=== PATIENT | female | born 1950 | race Caucasian/White ===

== ENCOUNTER 2024-12-14 12:53 | Outpatient (AMB) | payer MEDICARE, OTHER, SELFPAY ==
--- NOTE | 2024-12-14 13:00 | PD.ORTHCLVIS ---
Vital signs 12/14/24 13:04 Height 1.6 m Height Method Stated Weight 71.384 kg Weight Measurement Method Standing Scale BMI 27.8 BP 121/78 Blood Pressure Source Automatic Cuff Blood Pressure Location Left Upper Arm Position Sitting Respiration 18 Pulse 92 Pulse Source Monitor Temp 98.1 F Temp Source Temporal Artery Scan Pulse Oximetry (%) 95 Oxygen Delivery Method Room Air Med/Allergies Allergies & Medications Allergies No Known Allergies Allergy (Verified 12/14/24 13:04) Medication Reconciliation meloxicam 7.5 mg tablet 7.5 mg PO BID #45 tabs 05/04/23 [Rx Confirmed 12/14/24] Exam Exam Patient is in no acute distress and is cooperative with the examination today. Breathing is nonlabored. Patient has a normal mood and affect. The patient has a gait that is [nonantalgic] Bilateral extremities were evaluated and demonstrates sensation intact to light touch. Palpable pedal pulses are present. No significant edema is present. Bilateral hips were examined. The patient has no pain with log roll of the hips. Internal rotation to 30 degrees and external rotation to 30 degrees is painless. Negative FADIR. She is tender to palpation laterally over the greater trochanter Right knee was examined today. The right knee is in reasonable alignment. Range of motion from 0-120 degrees. Knee is stable to varus and valgus as well as AP translation with <5mm. Patient has a negative McMurrays. There is no pain with patellofemoral compression and no crepitus noted. The knee is nontender to palpation. Left knee was examined today. The left knee is in [neutral] alignment. Range of motion from [0-120] degrees. Knee is stable to varus and valgus as well as AP translation with <5mm. Patient has a [negative] McMurrays. There is [no] pain with patellofemoral compression and [no] crepitus noted. The knee is tender to palpation [diffusely]. X-rays from 04/22/2023 reviewed by me today. This demonstrates significant degenerative joint disease of the left knee. There are osteophytes medially and complete obliteration of the joint space. For the right hip, there is moderate osteoarthritis joint space narrowing and osteophytes Assessment and Plan Problem List (1) Spinal stenosis: Status: Acute Plan: Patient is a 72-year-old female with left knee osteoarthritis as well as right hip osteoarthritis and spinal stenosis. She would like a repeat right hip cortisone injection. I think this is reasonable as she wants to avoid surgery at all cost. She also did very well last time We will see her back to see how her injection is doing. (2) Arthritis of right hip: Status: Acute (3) Arthritis of knee, left: Status: Acute Advanced Care Planning Discussion Advance care planning discussed with:: patient Office Procedures GNS Level of Care Nursing/Assessment Patient Status: Established Patient Nursing Assessment/Reassesment: Medication Reconciliation, Update PMH in EMR and Vital Signs Coordination of Care: Complex Care and Chronic Disease 1-5, Education Complex Pt/Fam, Consent,records obtained, informed consent, Results/Orders obtained and Staff clarify orders Established Patient Charge Established Patient Point Assignment: 95 Established Patient Point Charge: EP Level 3 (80-115) MA Intake Visit Data Collection New Patient or Established: Established Patient (seen at [facility] within 3 years) Reason for Visit:: REQ RIGHT HIP INJECTION Seen by Clinical Staff ONLY (RN/MA): No PCP or OBGYN visit in last 3 months: Yes Hx Now: No Do You Feel Safe at Home: Yes Authorities Contacted: N/A Questionairres Past Medical History Past Medical History Have you ever been diagnosed with any of the following: Respiratory Problems Smoking: Yes (50+ YEARS) Smoking Exposure: Yes Subjective Visit Visit for: follow up visit, hip and injections Immunization / Flu Flu Vaccine in the Last 12 Months: No Flu Vaccine Exclusion Criteria: No Exclusion Criteria History of Present Illness Chief complaint: right dennis Patient is a 72-year-old female with right hip and left knee pain. The left knee pain is diffuse and the right hip pain is on the side. She has not had significant conservative therapy. She wants to avoid surgery as much as possible. She is not really taking anti-inflammatories. She reports that she now has bilateral radicular pain going down her legs. She had great relief with her last right hip intra-articular hip injection and she would like another one. We will order one for her As the last injection has lasted for over 6 months Pain Pain level (0-10): 6 Pain duration: ALL DAY Pain location: outside (lateral) Pain quality: aching Pain timing: increases with activity and stairs Ambulatory data Ambulatory device: none Treatments Improvement with previous injections: No Improvement with PT: No Improvement with NSAIDS: no Review of Systems Review of Systems: All systems negative unless otherwise noted in HPI.
[2024-12-14 13:04] VITALS: BP 121/78; PULSE 92; RESP 18; TEMP 36.7; O2SAT 95; BMI 27.8
== END 2024-12-14 13:22 | disposition home or self-care (01) ==
LOC: HODSRG 12:53
PROVIDERS: PCP Registered Nurse; Referring Provider Registered Nurse; Supervising Provider Orthopaedic Surgery Adult Reconstructive Orthopaedic Surgery; Visit Provider Orthopaedic Surgery Adult Reconstructive Orthopaedic Surgery
DX: M17.12 Unilateral primary osteoarthritis, left knee (principal); M16.11 Unilateral primary osteoarthritis, right hip; M48.00 Spinal stenosis, site unspecified; M25.551 Pain in right hip; M25.561 Pain in right knee
CPT/HCPCS: 99213; G0463

== ENCOUNTER → 2024-12-25 | Outpatient (CLI) | payer MEDICARE, OTHER, SELFPAY ==
--- NOTE | 2024-12-25 13:00 | XR_ITS ---
Examination: Steroid injection right hip joint with imaging guidance Fluoroscopy AP right hip single view INDICATIONS: Advanced right hip osteoarthritis right hip pain years. Exam date and time: December 25, 2024 1248 hours Informed consent provided. Technique: A timeout was completed verifying correct patient, procedure, site, positioning. The patient was placed in supine position appropriate for the steroid injection The patient's site was prepped and draped in sterile fashion 5 cc 1% lidocaine administered locally for anesthesia. Sterile drape applied, maximum barrier sterile technique. Utilizing fluoroscopic guidance, 23-gauge needle placed in the right hip joint 1 cc Kenalog 40 in 5 cc 0.25% Marcaine introduced into the right hip joint The patient was in satisfactory and stable condition on completion of the procedure Attending radiologist was present for the entire procedure Estimated blood loss 0 cc. Impression: Successful steroid injection right hip joint with imaging guidance Fluoroscopy 0.1 minute radiation dose 0.98 milligray 1 spot fluoroscopic film AP .
== END | disposition home or self-care (01) ==
LOC: SIRX 12:45
PROVIDERS: PCP Family Medicine; Referring Provider Orthopaedic Surgery Adult Reconstructive Orthopaedic Surgery; Visit Provider Orthopaedic Surgery Adult Reconstructive Orthopaedic Surgery
DX: M16.11 Unilateral primary osteoarthritis, right hip (principal)
CPT/HCPCS: 20610; 77002

== ENCOUNTER 2025-03-06 13:26 | Outpatient (AMB) | payer MEDICARE, OTHER, SELFPAY ==
--- NOTE | 2025-03-06 13:35 | ORTHONT_ITS ---
Vital signs 03/06/25 13:37 Height 1.6 m Height Method Stated Weight 70.987 kg Weight Measurement Method Standing Scale BMI 27.7 BP 134/80 H Blood Pressure Source Automatic Cuff Blood Pressure Location Left Upper Arm Position Sitting Respiration 18 Pulse 86 Pulse Source Monitor Temp 97.7 F Temp Source Temporal Artery Scan Pulse Oximetry (%) 94 L Oxygen Delivery Method Room Air Med/Allergies Allergies & Medications Allergies No Known Allergies Allergy (Verified 03/06/25 13:38) Medication Reconciliation meloxicam 7.5 mg tablet 7.5 mg PO BID #45 tabs 05/04/23 [Rx Confirmed 03/06/25] Exam Exam Patient is in no acute distress and is cooperative with the examination today. Breathing is nonlabored. Patient has a normal mood and affect. The patient has a gait that is [nonantalgic] Bilateral extremities were evaluated and demonstrates sensation intact to light touch. Palpable pedal pulses are present. No significant edema is present. Bilateral hips were examined. The patient has no pain with log roll of the hips. Internal rotation to 30 degrees and external rotation to 30 degrees is painless. Negative FADIR. She is tender to palpation laterally over the greater trochanter Right knee was examined today. The right knee is in reasonable alignment. Range of motion from 0-120 degrees. Knee is stable to varus and valgus as well as AP translation with <5mm. Patient has a negative McMurrays. There is no pain with patellofemoral compression and no crepitus noted. The knee is nontender to palpation. Left knee was examined today. The left knee is in [neutral] alignment. Range of motion from [0-120] degrees. Knee is stable to varus and valgus as well as AP translation with <5mm. Patient has a [negative] McMurrays. There is [no] pain with patellofemoral compression and [no] crepitus noted. The knee is tender to palpation [diffusely]. X-rays from 04/22/2023 reviewed by me today. This demonstrates significant d egenerative joint disease of the left knee. There are osteophytes medially and complete obliteration of the joint space. For the right hip, there is moderate osteoarthritis joint space narrowing and osteophytes X-rays demonstrate significant joint space narrowing of the femoral acetabular joint space. Left knee x-rays demonstrates complete obliteration of the medial joint space as well Assessment and Plan Problem List (1) Spinal stenosis: Status: Acute Plan: Patient is a 72-year-old female with left knee osteoarthritis as well as right hip osteoarthritis and spinal stenosis. She had a repeat hip cortisone injection with minimal relief. The majority of her pain is in the groin. We thus discussed total hip replacement as a reasonable option. I would do this through an anterior approach given her body habitus The nature and purpose of the total hip replacement, alternative method(s) of treatment, the material risks involved, and the possibility of complications were fully explained to the patient. The patient does NOT have any of the following contraindications to MARY: - Active infection of the hip joint, OR - Active systemic bacteremia, OR - Active skin infection or open wound at surgical site, OR - Neuropathic arthritis, OR - Severe, rapidly progressive neurological disease, OR - Severe medical condition that makes risks of the surgery outweigh the potential benefit The patient was told the most common risks and complications associated with a total hip replacement include, but are not limited to: blood clots in the leg, fatal pulmonary embolism, dislocation of the prosthesis, intraoperative and postoperative fractures of the femur or acetabulum, infection, failure of the prosthesis or grafting materials, complications from anesthesia, reactions to blood transfusions, postoperative leg length inequality, instability of the hip replacement, nerve damage or injury, vascular injury, delayed wound healing, infection, other injury or even . In addition, there are risks associated with anesthesia given during this operation. Also, the patient was told that after undergoing a total hip replacement there may still be persistent pain or disability. The patient was informed that the success of this operation in part depends upon the mechanical devices which are going to be implanted and that these devices can fail or malfunction, and may need to be repaired or replaced and there are no guarantees as to the longevity of this device or its parts and that it or its parts could fail prematurely. The patient was also notified that during the course of surgery, there may be a need to use bone graft from donors, and that any bone graft used will be carefully screened for communicable diseases, including AIDS, hepatitis, Geoffrey-Creutzfeldt, or other diseases, but despite the screening procedures, there is a small chance that they could contract one of these diseases. Finally, the patient was asked to follow completely and fully with all advice and recommended treatments, and that recovery and ultimate outcome are affected by their compliance with recommended treatment. We discussed the risks, benefits and treatment alternatives, and the patient is interested in proceeding with s nena. We will try to set this up as expeditiously as possible. (2) Arthritis of right hip: Status: Acute (3) Arthritis of knee, left: Status: Acute Advanced Care Planning Discussion Advance care planning discussed with:: patient Office Procedures GNS Level of Care Nursing/Assessment Patient Status: Established Patient Nursing Assessment/Reassesment: Medication Reconciliation, Update PMH in EMR and Vital Signs Coordination of Care: Complex Care and Chronic Disease 1-5, Education Complex Pt/Fam, Consent,records obtained, informed consent, Results/Orders obtained and Staff clarify orders Established Patient Charge Established Patient Point Assignment: 95 Established Patient Point Charge: EP Level 3 (80-115) MA Intake Visit Data Collection New Patient or Established: Established Patient (seen at [facility] within 3 years) Reason for Visit:: R HIP PAIN/LEFT KNEE INJ FU Seen by Clinical Staff ONLY (RN/MA): No PCP or OBGYN visit in last 3 months: Yes Hx Now: No Do You Feel Safe at Home: Yes Authorities Contacted: N/A Questionairres Past Medical History Past Medical History Have you ever been diagnosed with any of the following: Respiratory Problems Smoking: Yes (50+ YEARS) Smoking Exposure: Yes Subjective Visit Visit for: follow up visit, hip (RIGHT), knee (LEFT) and injections (KNEE) Immunization / Flu Flu Vaccine in the Last 12 Months: No Flu Vaccine Exclusion Criteria: No Exclusion Criteria History of Present Illness Chief complaint: right dennis Patient is a 72-year-old female with right hip and left knee pain. The left knee pain is diffuse and the right hip pain is on the side. She has not had significant conservative therapy. She wants to avoid surgery as much as possible. she has had multiple joint injections in the right hip. They are no longer working as long as they used to. The last injection only lasted for a few weeks. She has failed conservative treatments at this time including multiple injections in her hip as well as anti-inflammatories and home exercises Pain Pain level (0-10): 6 Pain duration: ALL DAY Pain location: outside (lateral) Pain quality: aching Pain timing: increases with activity and stairs Ambulatory data Ambulatory device: none Treatments Number of previous injections: 1 Improvement with previous injections: Yes Improvement with PT: No Improvement with NSAIDS: no Review of Systems Review of Systems: All systems negative unless otherwise noted in HPI.
[2025-03-06 13:37] VITALS: BP 134/80; PULSE 86; RESP 18; TEMP 36.5; O2SAT 94; BMI 27.7
== END 2025-03-06 13:42 | disposition home or self-care (01) ==
LOC: HODSRG 13:26
PROVIDERS: PCP Family Medicine; Referring Provider Family Medicine; Supervising Provider Orthopaedic Surgery Adult Reconstructive Orthopaedic Surgery; Visit Provider Orthopaedic Surgery Adult Reconstructive Orthopaedic Surgery
DX: M25.551 Pain in right hip (principal); M48.00 Spinal stenosis, site unspecified; M16.11 Unilateral primary osteoarthritis, right hip; M17.12 Unilateral primary osteoarthritis, left knee; M25.562 Pain in left knee
CPT/HCPCS: 99213; G0463

== ENCOUNTER → 2025-03-14 | Outpatient (CLI) | payer MEDICARE, OTHER, SELFPAY ==
--- NOTE | 2025-03-14 08:00 | XR_ITS ---
Examination: CT bilateral lower extremities, without contrast. 2-D sagittal reconstructions. 2-D coronal reconstructions. 3-D reconstructions. Date and time of exam:March 14, 2025 0801 hours INDICATIONS: Diagnosis unilateral right hip osteoarthritis, right hip pain 2 years CTDI: vol (mGy):10.2 DLP: (mGycm):656 Technique: Multiple 1.25 mm axial sections of the bilateral hips have been obtained. 2-D sagittal and coronal reconstructions have been obtained. 3-D reconstructions have been obtained. Low dose protocols were performed. One or more of the following dose reduction techniques were used; automated exposure control, adjustment of the mA and/or KV according to patient size, use of iterative reconstruction technique. Findings: Severe osteopenia. Severe narrowing right hip joint No right hip fracture or dislocation Moderate narrowing left hip joint Moderate to advanced narrowing medial joint space right knee Severe narrowing medial joint space left knee Moderate osteoarthritis patellofemoral joints IMPRESSION: Severe narrowing right hip joint Moderate to advanced narrowing medial joint space right knee Severe narrowing medial joint space left knee
== END | disposition home or self-care (01) ==
PROVIDERS: Referring Provider Orthopaedic Surgery Adult Reconstructive Orthopaedic Surgery; Visit Provider Orthopaedic Surgery Adult Reconstructive Orthopaedic Surgery
DX: M25.851 Other specified joint disorders, right hip (principal); M25.862 Other specified joint disorders, left knee; M25.861 Other specified joint disorders, right knee
CPT/HCPCS: 72192; 73700

== ENCOUNTER 2025-04-05 14:06 | Outpatient (AMB) | payer MEDICARE, OTHER, SELFPAY ==
--- NOTE | 2025-04-05 14:13 | ORTHONT_ITS ---
Vital signs 04/05/25 14:15 Height 1.6 m Height Method Stated Weight 71.016 kg Weight Measurement Method Standing Scale BMI 27.7 BP 123/78 Blood Pressure Source Automatic Cuff Blood Pressure Location Left Upper Arm Position Sitting Respiration 18 Pulse 87 Pulse Source Monitor Temp 97.5 F Temp Source Temporal Artery Scan Pulse Oximetry (%) 97 Oxygen Delivery Method Room Air Med/Allergies Allergies & Medications Allergies No Known Allergies Allergy (Verified 04/05/25 14:15) Medication Reconciliation meloxicam 7.5 mg tablet 7.5 mg PO BID #45 tabs 05/04/23 [Rx Confirmed 04/05/25] Exam Exam Patient is in no acute distress and is cooperative with the examination today. Breathing is nonlabored. Patient has a normal mood and affect. The patient has a gait that is [nonantalgic] Bilateral extremities were evaluated and demonstrates sensation intact to light touch. Palpable pedal pulses are present. No significant edema is present. Bilateral hips were examined. The patient has no pain with log roll of the hips. Internal rotation to 30 degrees and external rotation to 30 degrees is painless. Negative FADIR. She is tender to palpation laterally over the greater trochanter Right knee was examined today. The right knee is in reasonable alignment. Range of motion from 0-120 degrees. Knee is stable to varus and valgus as well as AP translation with <5mm. Patient has a negative McMurrays. There is no pain with patellofemoral compression and no crepitus noted. The knee is nontender to palpation. Left knee was examined today. The left knee is in [neutral] alignment. Range of motion from [0-120] degrees. Knee is stable to varus and valgus as well as AP translation with <5mm. Patient has a [negative] McMurrays. There is [no] pain with patellofemoral compression and [no] crepitus noted. The knee is tender to palpation [diffusely]. X-rays from 04/22/2023 reviewed by me today. This demonstrates significant degenerative joint disease of the left knee. There are osteophytes medially and complete obliteration of the joint space. For the right hip, there is moderate osteoarthritis joint space narrowing and osteophytes X-rays demonstrate significant joint space narrowing of the femoral acetabular joint space. Left knee x-rays demonstrates complete obliteration of the medial joint space as well Assessment and Plan Problem List (1) Spinal stenosis: Status: Acute Plan: Patient is a 72-year-old female with left knee osteoarthritis as well as right hip osteoarthritis and spinal stenosis. She had a repeat hip cortisone injection with minimal relief. The majority of her pain is in the groin. We thus discussed total hip replacement as a reasonable option. I would do this through an anterior approach given her body habitus The nature and purpose of the total hip replacement, alternative method(s) of treatment, the material risks involved, and the possibility of complications were fully explained to the patient. The patient does NOT have any of the following contraindications to MARY: - Active infection of the hip joint, OR - Active systemic bacteremia, OR - Active skin infection or open wound at surgical site, OR - Neuropathic arthritis, OR - Severe, rapidly progressive neurological disease, OR - Severe medical condition that makes risks of the surgery outweigh the potential benefit The patient was told the most common risks and complications associated with a total hip replacement include, but are not limited to: blood clots in the leg, fatal pulmonary embolism, dislocation of the prosthesis, intraoperative and postoperative fractures of the femur or acetabulum, infection, failure of the prosthesis or grafting materials, complications from anesthesia, reactions to blood transfusions, postoperative leg length inequality, instability of the hip replacement, nerve damage or injury, vascular injury, delayed wound healing, infection, other injury or even . In addition, there are risks associated with anesthesia given during this operation. Also, the patient was told that after undergoing a total hip replacement there may still be persistent pain or disability. The patient was informed that the success of this operation in part depends upon the mechanical devices which are going to be implanted and that these devices can fail or malfunction, and may need to be repaired or replaced and there are no guarantees as to the longevity of this device or its parts and that it or its parts could fail prematurely. The patient was also notified that during the course of surgery, there may be a need to use bone graft from donors, and that any bone graft used will be carefully screened for communicable diseases, including AIDS, hepatitis, Geoffrey-Creutzfeldt, or other diseases, but despite the screening procedures, there is a small chance that they could contract one of these diseases. Finally, the patient was asked to follow completely and fully with all advice and recommended treatments, and that recovery and ultimate outcome are affected by their compliance with recommended treatment. We discussed the risks, benefits and treatment alternatives, and the patient is interested in proceeding with surgery. We will try to set this up as expeditiously as possible. (2) Arthritis of right hip: Status: Acute (3) Arthritis of knee, left: Status: Acute Advanced Care Planning Discussion Advance care planning discussed with:: patient Office Procedures GNS Level of Care Nursing/Assessment Patient Status: Established Patient Nursing Assessment/Reassesment: Medication Reconciliation, Update PMH in EMR and Vital Signs Coordination of Care: Complex Care and Chronic Disease 1-5, Education Complex Pt/Fam, Consent,records obtained, informed consent, Results/Orders obtained and Staff clarify orders Established Patient Charge Established Patient Point Assignment: 95 Established Patient Point Charge: EP Level 3 (80-115) MA Intake Visit Data Collection New Patient or Established: Established Patient (seen at [facility] within 3 years) Reason for Visit:: R HIP PAIN/LEFT KNEE INJ FU Seen by Clinical Staff ONLY (RN/MA): No PCP or OBGYN visit in last 3 months: Yes Hx Now: No Do You Feel Safe at Home: Yes Authorities Contacted: N/A Questionairres Past Medical History Past Medical History Have you ever been diagnosed with any of the following: Respiratory Problems Smoking: Yes (50+ YEARS) Smoking Exposure: Yes Subjective Visit Visit for: follow up visit, hip (RIGHT), knee (LEFT) and injections (KNEE) Immunization / Flu Flu Vaccine in the Last 12 Months: No Flu Vaccine Exclusion Criteria: No Exclusion Criteria History of Present Illness Chief complaint: right hip pain Patient is a 72-year-old female with right hip and left knee pain. The left knee pain is diffuse and the right hip pain is on the side. She has not had significant conservative therapy. She wants to avoid surgery as much as possible. she has had multiple joint injections in the right hip. They are no longer working as long as they used to. The last injection only lasted for a few weeks. She has failed conservative treatments at this time including multiple injections in her hip as well as anti-inflammatories and home exercises Pain Pain level (0-10): 6 Pain duration: ALL DAY Pain location: outside (lateral) Pain quality: aching Pain timing: increases with activity and stairs Ambulatory data Ambulatory device: none Treatments Number of previous injections: 1 Improvement with previous injections: Yes Improvement with PT: No Improvement with NSAIDS: no Review of Systems Review of Systems: All systems negative unless otherwise noted in HPI.
[2025-04-05 14:15] VITALS: BP 123/78; PULSE 87; RESP 18; TEMP 36.4; O2SAT 97; BMI 27.7
== END 2025-04-05 14:23 | disposition home or self-care (01) ==
LOC: HODSRG 14:06
PROVIDERS: PCP Family Medicine; Referring Provider Family Medicine; Supervising Provider Orthopaedic Surgery Adult Reconstructive Orthopaedic Surgery; Visit Provider Orthopaedic Surgery Adult Reconstructive Orthopaedic Surgery
DX: M25.561 Pain in right knee (principal); M25.562 Pain in left knee; M17.12 Unilateral primary osteoarthritis, left knee; M16.11 Unilateral primary osteoarthritis, right hip; M48.00 Spinal stenosis, site unspecified
CPT/HCPCS: 99213; G0463

== ENCOUNTER 2025-05-04 11:03 | Outpatient (AMB) | payer MEDICARE, OTHER, SELFPAY ==
--- NOTE | 2025-05-04 11:18 | PD.ORTHCLVIS ---
Vital signs 05/04/25 11:23 Height 1.6 m Height Method Stated Weight 70.562 kg Weight Measurement Method Standing Scale BMI 27.6 BP 113/74 Blood Pressure Source Automatic Cuff Blood Pressure Location Left Upper Arm Position Sitting Respiration 20 Pulse 96 Pulse Source Monitor Temp 97.9 F Temp Source Temporal Artery Scan Pulse Oximetry (%) 96 Oxygen Delivery Method Room Air Med/Allergies Allergies & Medications Allergies No Known Allergies Allergy (Verified 05/04/25 11:24) Medication Reconciliation meloxicam 7.5 mg tablet 7.5 mg PO BID #45 tabs 05/04/23 [Rx Confirmed 05/04/25] Exam Exam Patient is in no acute distress and is cooperative with the examination today. Breathing is nonlabored. Patient has a normal mood and affect. The patient has a gait that is [nonantalgic] Bilateral extremities were evaluated and demonstrates sensation intact to light touch. Palpable pedal pulses are present. No significant edema is present. Bilateral hips were examined. The patient has no pain with log roll of the hips. Internal rotation to 30 degrees and external rotation to 30 degrees is painless. Negative FADIR. She is tender to palpation laterally over the greater trochanter Right knee was examined today. The right knee is in reasonable alignment. Range of motion from 0-120 degrees. Knee is stable to varus and valgus as well as AP translation with <5mm. Patient has a negative McMurrays. There is no pain with patellofemoral compression and no crepitus noted. The knee is nontender to palpation. Left knee was examined today. The left knee is in [neutral] alignment. Range of motion from [0-120] degrees. Knee is stable to varus and valgus as well as AP translation with <5mm. Patient has a [negative] McMurrays. There is [no] pain with patellofemoral compression and [no] crepitus noted. The knee is tender to palpation [diffusely]. X-rays from 04/22/2023 reviewed by me today. This demonstrates significant degenerative joint disease of the left knee. There are osteophytes medially and complete obliteration of the joint space. For the right hip, there is moderate osteoarthritis joint space narrowing and osteophytes X-rays demonstrate significant joint space narrowing of the femoral acetabular joint space. Left knee x-rays demonstrates complete obliteration of the medial joint space as well Assessment and Plan Problem List (1) Spinal stenosis: Status: Acute Plan: Patient is a 72-year-old female with left knee osteoarthritis as well as right hip osteoarthritis and spinal stenosis. She had a repeat hip cortisone injection with minimal relief. The majority of her pain is in the groin. We thus discussed total hip replacement as a reasonable option. I would do this through an anterior approach given her body habitus The nature and purpose of the total hip replacement, alternative method(s) of treatment, the material risks involved, and the possibility of complications were fully explained to the patient. The patient does NOT have any of the following contraindications to MARY: - Active infection of the hip joint, OR - Active systemic bacteremia, OR - Active skin infection or open wound at surgical site, OR - Neuropathic arthritis, OR - Severe, rapidly progressive neurological disease, OR - Severe medical condition that makes risks of the surgery outweigh the potential benefit The patient was told the most common risks and complications associated with a total hip replacement include, but are not limited to: blood clots in the leg, fatal pulmonary embolism, dislocation of the prosthesis, intraoperative and postoperative fractures of the femur or acetabulum, infection, failure of the prosthesis or grafting materials, complications from anesthesia, reactions to blood transfusions, postoperative leg length inequality, instability of the hip replacement, nerve damage or injury, vascular injury, delayed wound healing, infection, other injury or even . In addition, there are risks associated with anesthesia given during this operation. Also, the patient was told that after undergoing a total hip replacement there may still be persistent pain or disability. The patient was informed that the success of this operation in part depends upon the mechanical devices which are going to be implanted and that these devices can fail or malfunction, and may need to be repaired or replaced and there are no guarantees as to the longevity of this device or its parts and that it or its parts could fail prematurely. The patient was also notified that during the course of surgery, there may be a need to use bone graft from donors, and that any bone graft used will be carefully screened for communicable diseases, including AIDS, hepatitis, Geoffrey-Creutzfeldt, or other diseases, but despite the screening procedures, there is a small chance that they could contract one of these diseases. Finally, the patient was asked to follow completely and fully with all advice and recommended treatments, and that recovery and ultimate outcome are affected by their compliance with recommended treatment. We discussed the risks, benefits and treatment alternatives, and the patient is interested in proceeding with surgery. We will try to set this up as expeditiously as possible. (2) Arthritis of right hip: Status: Acute (3) Arthritis of knee, left: Status: Acute Advanced Care Planning Discussion Advance care planning discussed with:: patient Office Procedures GNS Level of Care Nursing/Assessment Patient Status: Established Patient Nursing Assessment/Reassesment: Medication Reconciliation, Update PMH in EMR and Vital Signs Coordination of Care: Complex Care and Chronic Disease 1-5, Education Complex Pt/Fam, Consent,records obtained, informed consent, Results/Orders obtained and Staff clarify orders Established Patient Charge Established Patient Point Assignment: 95 Established Patient Point Charge: EP Level 3 (80-115) MA Intake Visit Data Collection New Patient or Established: Established Patient (seen at [facility] within 3 years) Reason for Visit:: PRE OP R TKA Seen by Clinical Staff ONLY (RN/MA): No PCP or OBGYN visit in last 3 months: Yes Hx Now: No Do You Feel Safe at Home: Yes Authorities Contacted: N/A Questionairres Past Medical History Past Medical History Have you ever been diagnosed with any of the following: Respiratory Problems Smoking: Yes (50+ YEARS) Smoking Exposure: Yes Subjective Visit Visit for: follow up visit and hip (RIGHT) Immunization / Flu Flu Vaccine in the Last 12 Months: No Flu Vaccine Exclusion Criteria: No Exclusion Criteria History of Present Illness Chief complaint: PRE OP R MARY SX ON 05/23 Patient is a 72-year-old female with right hip and left knee pain. The left knee pain is diffuse and the right hip pain is on the side. She has not had significant conservative therapy. She wants to avoid surgery as much as possible. she has had multiple joint injections in the right hip. They are no longer working as long as they used to. The last injection only lasted for a few weeks. She has failed conservative treatments at this time including multiple injections in her hip as well as anti-inflammatories and home exercises Personal History Additional comments: WALKER WAS GIVEN TO PATIENT Pain Pain level (0-10): 6 Pain duration: ALL DAY Pain location: outside (lateral) Pain quality: aching Pain timing: increases with activity and stairs Ambulatory data Ambulatory device: walker (GIVEN TO PT) and none Treatments Number of previous injections: 1 Improvement with previous injections: Yes Improvement with PT: No Improvement with NSAIDS: no Review of Systems Review of Systems: All systems negative unless otherwise noted in HPI.
[2025-05-04 11:23] VITALS: BP 113/74; PULSE 96; RESP 20; TEMP 36.6; O2SAT 96; BMI 27.6
--- NOTE | 2025-05-04 11:23 | XR_ITS ---
Examination: Right hip AP, lateral, AP pelvis 3 views Technique: Hip AP lateral, AP pelvis, 3 views Exam date and time: May 04, 2025, 1133 hours INDICATIONS: Right hip pain months FINDINGS: Severe right hip osteoarthritis, marked joint space narrowing and subarticular sclerosis Moderate left hip osteoarthritis No hip or pelvic fracture IMPRESSION: Severe right hip osteoarthritis.
== END 2025-05-04 11:27 | disposition home or self-care (01) ==
LOC: HODSRG 11:03
PROVIDERS: Supervising Provider Orthopaedic Surgery Adult Reconstructive Orthopaedic Surgery; Visit Provider Orthopaedic Surgery Adult Reconstructive Orthopaedic Surgery
DX: M25.551 Pain in right hip (principal); M25.562 Pain in left knee; M16.11 Unilateral primary osteoarthritis, right hip; M17.12 Unilateral primary osteoarthritis, left knee; M48.00 Spinal stenosis, site unspecified
CPT/HCPCS: 73502; 99213; G0463

== ENCOUNTER 2025-05-23 05:45 | Day surgery (SDC) | payer MEDICARE, OTHER, SELFPAY ==
--- NOTE | 2025-05-22 06:00 | EKG_ITS ---
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
[2025-05-22 07:02] VITALS: BMI 26.9
[2025-05-22 08:55] LABS: Basophils # (Auto) 0.1 Thou/mm3 (0.0-0.2); Basophils % (Auto) 2 % (0-2.5); Eosinophils # (Auto) 0.3 Thou/mm3 (0.0-0.5); Eosinophils % (Auto) 6 % (0-10); Hematocrit 44.0 % (36.0-46.0); Hemoglobin 15.0 g/dL (12.0-16.0); Immature Granulocytes Auto 0.01 Thou/mm3 (0.00-0.00); Lymphocytes # (Auto) 1.9 Thou/mm3 (1.0-4.8); Lymphocytes % (Auto) 39 % (10-50); Mean Corpuscular HGB Conc 34.1 g/dl (31.0-37.0); Mean Corpuscular Hemoglobin 32.3 pg (25.0-35.0); Mean Corpuscular Volume 95 fL (80-100); Monocytes # (Auto) 0.6 Thou/mm3 (0.0-0.8); Monocytes % (Auto) 12 % (0-12); Neutrophils # (Auto) 2.0 Thou/mm3 (1.8-7.7); Neutrophils % (Auto) 42 % (37-80); Nucleated Red Blood Cell # 0.00 Thou/mm3 (0.00-0.00); Nucleated Red Blood Cell % 0 /100 WBC (0); Platelet Count 318 Thou/mm3 (140-440); RDW Standard Deviation 43.7 fL (36.4-46.3); Red Blood Count 4.64 Miln/mm3 (4.00-5.20); White Blood Count 4.8 Thou/mm3 (3.6-11.0)
[2025-05-22 09:05] LABS: Alanine Aminotransferase 13 U/L (10-49); Albumin, Serum 4.5 gm/dL (3.4-4.8); Albumin/Globulin Ratio 2.0 (1.2-2.2); Alkaline Phosphatase 71 U/L (46-116); Anion Gap 8 (7-16); Aspartate Amino Transferase 17 U/L (0-34); BUN/Creatinine Ratio 15 Ratio (12-20); Bilirubin,Total 0.4 mg/dL (0.3-1.2); Blood Urea Nitrogen 9 mg/dL (9-23); Calcium 9.3 mg/dL (8.3-10.6); Calcium (Corrected) 9.3 mg/dL (8.5-10.1); Carbon Dioxide 28.6 mMol/L (20.0-31.0); Chloride 104 mMol/L (98-107); Creatinine (Component) 0.6 mg/dL (0.6-1.3); Estimated Creatinine Clearance 78.5 mL/min (>60); Globulin 2.2 gm/dL (2.3-3.5); Glucose 105 mg/dL (74-106); Osmolality,Calculated 279 (275-295); Potassium 3.3 mMol/L (3.4-5.1); Sodium 141 mMol/L (136-145); Total Protein 6.7 gm/dL (5.7-8.2); eGFR > 60 See Note
[2025-05-22 09:53] LABS: INR 0.9 (0.9-1.3); Partial Thromboplastin Time 27.6 Seconds (22.0-36.0); Prothrombin Time 9.7 Seconds (9.0-12.2)
[2025-05-23] VITALS (15 sets, daily range): BP systolic 90–124; BP diastolic 50–82; PULSE 77–102; RESP 14–21; TEMP 36.1–36.6; O2SAT 90–98; BMI 25.9
[2025-05-23] MEDS: PREGABALIN 75 MG CAPSULE PO (06:50)
[2025-05-23] MEDS: ACETAMINOPHEN 325 MG TABLET 650 MG PO (06:50)
[2025-05-23] MEDS: MELOXICAM 7.5 MG TABLET PO (06:50)
--- NOTE | 2025-05-23 07:15 | CHAP ---
Visited briefly with patient and gave encouragement and prayer.
--- NOTE | 2025-05-23 07:30 | XR_ITS ---
EXAMINATION: Right hip AP 6 views Fluoroscopy Date and time: May 23, 2025, 10:30 a.m. INDICATIONS: Severe right hip osteoarthritis on plain films right hip May 04, 2025, total right hip arthroplasty today TECHNIQUE AND FINDINGS: 6. Spot fluoroscopic films of the right hip Fluoroscopy 24 seconds radiation dose 2.57 mGy Total right hip arthroplasty. Satisfactory alignment IMPRESSION: Total right hip arthroplasty with satisfactory alignment
--- NOTE | 2025-05-23 10:23 | XR_ITS ---
Examination: Right hip AP, lateral, AP pelvis 3 views Technique: Hip AP lateral, AP pelvis, 3 views Exam date and time: Right May 23 2025, 10:45 a.m. INDICATIONS: Postop right hip arthroplasty today. FINDINGS: Total right hip arthroplasty. Satisfactory alignment. No fractures. Prominent osteopenia. Moderate left hip osteoarthritis IMPRESSION: Total right hip arthroplasty with satisfactory alignment.
--- NOTE | 2025-05-23 10:23 | XR_ITS ---
EXAMINATION: Right knee 2 views TECHNIQUE: AP portable supine lateral right hip 2 views Date and time: May 23, 2025, 1045 hours INDICATIONS: Right knee pain post right hip surgery today. FINDINGS: Moderate tricompartment osteoarthritis right knee No fracture Prominent osteopenia Small knee effusion IMPRESSION: Moderate tricompartment osteoarthritis right knee
--- NOTE | 2025-05-23 10:24 | ESOP_ITS ---
Date of Procedure 05/23/25 Pre Op Diagnosis right hip osteoarthritis Post Op Diagnosis right hip osteoarthritis Procedure right total hip replacement Findings full thickness cartilage loss and osteophytes Procedure Description Indications: The patient is a 74 y.o. year-old male with a long standing history of right hip pain. After considering the patient's condition and the impact of their hip on the patient's quality of life and activities of daily living, total hip replacement was offered as a reasonable option. Prior to the surgery I discussed the nature of the total hip replacement surgery including alternatives to surgery and the purpose of, and indications for proceeding with surgery. I discussed that this is an elective operation and that the patient should carefully weigh their options before proceeding with surgery. I discussed that this surgery is a shared decision between the patient and the surgeon. Risks and benefits and alternatives of the procedure have been explained to the patient and their family. Anesthesia complications and risks include but are not limited to stroke, heart attack, and . The surgical risks include but are not limited to infection, instability/dislocation, bleeding, nerve and blood vessel injury, deep vein thrombosis, pulmonary embolus, stiffness, pain, scar, need for reoperation, leg length discrepancy, thigh numbness, weakness, and mechanical failure of the implant including loosening, metal complications, metal allergy, wear or breakage. I discussed the expected recovery from surgery and the importance of compliance with all our pre and post-operative recommendations in order to maximize the recovery. The patient understands the risks of loss of life, loss of limb and, loss of function and wishes to proceed. A signed and witnessed consent was obtained and placed in the chart. Procedure in Detail: The patient was identified in the preoperative area. A signed and witness consent was confirmed in the chart. The surgery team confirmed with the patient the operative plan and surgical site. The surgical site was confirmed by the patient and marked by the surgical team. The patient was given the opportunity to ask any further questions and all questions were answered. The patient was brought to the operating room where anesthesia was induced by the anesthesia team without incident. The patient was placed in the supine position on a HANA table with the feet well padded in the boots. All extremities were padded to ensure adequate protection. A timeout was performed prior to the procedure which verified the correct patient, positioning, operation to be performed, operative site, antibiotics, allergies, imaging, and any other concerns. All parties were in agreement. The operative site was cleaned and draped in the usual sterile fashion. A final timeout was performed with all parties in agreement. We first started by making a small incision superior to the ASIS ensuring to be on the table of the pelvis. We ensured that we were 2 fingerbreadths above the ASIS and hip. We placed 3 pins through a small incision and ensured that we we re in the table. The pins were driven approximately 3 to 4 cm. The arrays were then placed on the contralateral side to face the camera. A anterior approach to the hip was utilized for the operative side. A 11cm skin incision was made just distal and lateral to the ASIS. This was taken down through skin and subcutaneous tissue using a 10 blade. Bleeding was controlled using electrocautery. The fascia was identified and split in line with the its fibers. The plane medial to the TFL was developed. Next the lateral femoral circumflex vessel was cauterized. The capsule over the femoral neck was exposed and a T shaped capsulotomy performed. The two leaflets were tagged. A femoral neck osteotomy was then performed and the head removed using the marker tool to aid in determining the appropriate neck length. The acetabular bone was then mapped.Acetabular retractors were placed and the cupped was reamed using the robot for alignment. We reamed line to line and good bleeding bone was obtained. We then placed a press fit triathlon cup getting proper version and inclination off of c-arm imaging. There was good press fit. The anterior rim of the cup well covered. One placed and confirmed below the rim of the inner cup followed by the liner which was confirmed fully seated circumferentially. Half of the joint injection was placed inferior and anterior to the acetabulum. Peripheral osteophytes were removed. Next the femur was exposed using the table and femoral elevator for assistance. For this case a capsular release was performed leaving the piriformis and rest of short external rotators intact. The canal was broached up until we obtained excellent axial and rotational stability and the hip was reduced. Fluoro was used to tribal judge limb length, offset, and stem size as well as the calibrations from the robot. Stability was assessed by externally rotating the foot to 90 deg and then extending the hip 30 degrees. There was no subluxation of the femoral head in that position. The hip was dislocated. The stem position and depth was adjusted as needed per the fluoro shot. The neck was planed to the level of the broach using the calcar planar and then the stem removed. The canal was irrigated and the calcar inspected. There was no evidence of fracture and the bone bed was in good condition. The real stem was inserted and then impacted to the prior level of the broach with good solid fit. The calcar was again inspected and in good condition. The real head was impacted onto a clean taper and the hip reduced again. C-arm confirmed reduction and no evidence of complication. The wound was irrigated with dilute betadine followed by saline lavage. Hemostasis was obtained and noted through all layers. The remained of the joint cocktail was injected avoiding posterior by the nerve. We ensured that all the pins were removed from the pelvis including any checkpoints. The capsule was repaired with 0-vlock. The fascia closed with #2 Quill. The barrientos bcutaneous tissues closed with 2-0 vlock followed by 3-0 monocryl, dermabond, and prineo The drapes were then taken down and the patient moved to the [facility]. Leg lengths were confirmed to be appropriate and the patient's lower extremities were warm and well perfused with brisk capillary refill and palpable pulses. The patient was then awoken, transferred to the [facility] and taken to the PACU in stable condition. They tolerated the procedure well. The patient's family/caregiviers were made aware of their condition. Final sponge and needle counts were correct x2. Implants: [place] trident 50 cup, 36 +0 head, high offset 3 insignia Anesthesia spinal Implants Implants comments: natalio Pathology / specimen None Pathology comment: none Estimated Blood Loss 150 Condition Stable Disposition same day Surgeon Maninder Manzanares MD Surgical Staff Operation Date: 05/23/25 07:45 Case Staff Anesthesiologist: Hans Green RN First Assistant: Kary Ball RNstaff trainer: Tracey Hua
--- NOTE | 2025-05-23 10:39 | SUR.PHASEI ---
1014: Pt received in [facility] via gurney. Report from Jenni THURMAN and Maurizio STERLING. Pt obtunded. Oral airway in place. Resp even, unlabored. VS stable. Dressing to right and left lateral hips dry, clean, intact. Bilateral pedal pulses strong regular. 1025: Pt arousable. Can follow simple direction. Oral airway dc'd. Resp even, unlabored.
--- NOTE | 2025-05-23 10:44 | SUR.PHASEI ---
1042: Pt more awake. Resp even, unlabored. VS stable. Dressing remains dry, clean, intact. Bilateral pedal pulses strong, regular. Denies pain.
--- NOTE | 2025-05-23 11:00 | SUR.PHASEII ---
1057: Pt resting with no complaints voiced. Resp even, unlabored. VS stable. Dressing both hips remain dry, clean, intact. Bilateral pedal pulses strong, regular. Radiology here to take ordered x-rays and complete at this time. Pt tolerated procedure with no complaints.
--- NOTE | 2025-05-23 11:33 | SUR.PHASEII ---
1133: Pt resting with no complaints voiced. Resp even, unlabored. VS stable. Dressings remain dry, clean, intact. Bilateral pedal pulses strong, regular.
--- NOTE | 2025-05-23 12:15 | SUR.PHASEII ---
1215: Pt has been resting with no complaints voiced. VS stable. Dressing unchanged. Denies pain. Spinal remains at L5. Has good movement of both feet, but sensation very limited. at bedside. Pt is consuming lunch tray with no difficulty swallowing and no n/v.
--- NOTE | 2025-05-23 14:46 | SUR.PHASEII ---
1300: Physical Therapy assessed pt. Pt able to ambulate with no difficulty. Pt assisted to restroom. Voided per PT. PT determined pt could be discharged from [facility]. has been at bedside. 1330: VS stable. Dressings to both hips dry, clean, intact. Denies pain. Pt and stated understanding of discharge instructions. Pt also instructed to nut picker her prescriptions at [facility]. Pt discharged from [facility] in stable condition.
== END 2025-05-23 13:30 | disposition home or self-care (01) ==
PROVIDERS: Anesthesiology; Referring Provider Orthopaedic Surgery Adult Reconstructive Orthopaedic Surgery; Visit Provider Orthopaedic Surgery Adult Reconstructive Orthopaedic Surgery
PROC: (CPT 27130; principal; 2025-05-23 07:30)
DX: M16.11 Unilateral primary osteoarthritis, right hip (principal); Z01.810 Encounter for preprocedural cardiovascular examination; M48.00 Spinal stenosis, site unspecified; M17.11 Unilateral primary osteoarthritis, right knee
CPT/HCPCS: 27130; 36415; 73502; 73560; 76000; 80053; 85025; 85610; 85730; 93005; 97162; A4217; A4649; C1713; C1776; J0690; J1100; J2250; J2371; J2704; J3010; J3490; J7030; A4648; A9270; J7999

== ENCOUNTER 2025-06-07 08:37 | Outpatient (AMB) | payer MEDICARE, OTHER, SELFPAY ==
--- NOTE | 2025-06-07 08:48 | PD.ORTHCLVIS ---
Vital signs 06/07/25 08:49 Height 1.63 m Height Method Stated Weight 70.845 kg Weight Measurement Method Standing Scale BMI 26.6 BP 118/75 Blood Pressure Source Automatic Cuff Blood Pressure Location Right Upper Arm Position Sitting Respiration 18 Pulse 85 Pulse Source Monitor Temp 96.9 F Temp Source Temporal Artery Scan Pulse Oximetry (%) 97 Oxygen Delivery Method Room Air Med/Allergies Allergies & Medications Allergies No Known Allergies Allergy (Verified 06/07/25 08:49) Medication Reconciliation amlodipine 5 mg tablet 5 mg PO DAILY 05/22/25 [History Confirmed 06/07/25] atorvastatin 10 mg tablet 10 mg PO DAILY 05/22/25 [History Confirmed 06/07/25] hydrochlorothiazide 25 mg tablet 25 mg PO DAILY 05/22/25 [History Confirmed 06/07/25] losartan 100 mg tablet 100 mg PO DAILY 05/22/25 [History Confirmed 06/07/25] acetaminophen 500 mg tablet (Acetaminophen Extra Strength) 1,000 mg (2 x 500 mg) PO Q6H PRN pain #90 tabs 05/23/25 [Rx Confirmed 06/07/25] aspirin 81 mg tablet,delayed release 81 mg PO BID #60 tabs 05/23/25 [Rx Confirmed 06/07/25] doxycycline hyclate 100 mg tablet 100 mg PO BID #14 tabs 05/23/25 [Rx Confirmed 06/07/25] gabapentin 300 mg capsule 300 mg PO .qhs #30 caps 05/23/25 [Rx Confirmed 06/07/25] oxycodone 5 mg tablet 5 mg PO Q6H PRN pain #28 tabs 05/23/25 [Rx Confirmed 06/07/25] sennosides 8.6 mg-docusate sodium 50 mg tablet (Senna-S) 1 tab-cap PO QDAY #30 tabs 05/23/25 [Rx Confirmed 06/07/25] Exam Exam Patient is in no acute distress and is cooperative with the examination today. Breathing is nonlabored. Patient has a normal mood and affect. The patient has a gait that is [nonantalgic] Bilateral extremities were evaluated and demonstrates sensation intact to light touch. Palpable pedal pulses are present. No significant edema is present. Bilateral hips were examined. The patient has no pain with log roll of the hips. Internal rotation to 30 degrees and external rotation to 30 degrees is painless. Negative FADIR. 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 She is doing well. Her pain is almost nonexistent at this point. She uses a walker for long distances only. We will set her up with outpatient physical therapy (2) Arthritis of right hip: Status: Acute (3) Arthritis of knee, left: Status: Acute Advanced Care Planning Discussion Advance care planning discussed with:: patient Office Procedures GNS Level of Care Nursing/Assessment Patient Status: Established Patient Nursing Assessment/Reassesment: Medication Reconciliation, Update PMH in EMR and Vital Signs Coordination of Care: Complex Care and Chronic Disease 1-5, Education Complex Pt/Fam, Consent,records obtained, informed consent, 1 Ins Authorization, Lab and Imaging orders, Ref for ancillary service (PHYSICAL THERAPY REFERRAL) and Staff clarify orders Established Patient Charge Established Patient Point Assignment: 140 Established Patient Point Charge: EP Level 4 (120-155) MA Intake Visit Data Collection New Patient or Established: Established Patient (seen at [facility] within 3 years) Reason for Visit:: 2 WK POST OP RT MARY Seen by Clinical Staff ONLY (RN/MA): No Verbal consent obtained for Telemed visit?: No Water Quality Technician Required: No PCP or OBGYN visit in last 3 months: Yes Hx Now: No Do You Feel Safe at Home: Yes Authorities Contacted: N/A Questionairres Past Medical History Past Medical History Have you ever been diagnosed with any of the following: Neurological Problems Seizures: No Cardiology Problems Hypercholesterolemia: Yes Congestive Heart Failure: No Hypertension: Yes Respiratory Problems Chronic Obstructive Pulmonary Disease (COPD): No Smoking: Yes (50+ YEARS) Smoking Exposure: Yes Stomache/Intestinal Problems Hepatitis: No Genital/Urinary Problems Renal Disease: No Reproductive Problems Endometriosis: No Pelvic Inflammatory Disease: No Previous Pregnancies: Yes (2) Uterine Prolapse: No Musculoskeletal Problems Arthritis: Yes Fractures: Yes (right wrist) Endocrine Problems Diabetes Mellitus Type 1: No Diabetes Mellitus Type 2: No Other Problems Hospitalization: Yes (surgery) Shingles: No Blood Transfusions: No Blood Transfusion Reaction: No Anesthesia Reactions: No Clostridium Difficile: No Cancer: No Subjective Visit Visit for: follow up visit and hip (RIGHT) Immunization / Flu Flu Vaccine in the Last 12 Months: No Flu Vaccine Exclusion Criteria: No Exclusion Criteria History of Present Illness Chief complaint: PRE OP R MARY SX ON 05/23 Patient is a 72-year-old female with right hip and left knee pain. She is doing well status post right total hip replacement. Her pain is gone Personal History Occupation: RETIRED BMI Counceling provided: No Additional comments: WALKER WAS GIVEN TO PATIENT Pain Pain level (0-10): 6 Pain duration: ALL DAY Pain location: outside (lateral) Pain quality: aching Pain timing: increases with activity and stairs Ambulatory data Ambulatory device: walker (GIVEN TO PT) and none Treatments Number of previous injections: 1 Improvement with previous injections: Yes Improvement with PT: No Improvement with NSAIDS: no Review of Systems Review of Systems: All systems negative unless otherwise noted in HPI.
[2025-06-07 08:49] VITALS: BP 118/75; PULSE 85; RESP 18; TEMP 36.1; O2SAT 97; BMI 26.6
== END 2025-06-07 08:54 | disposition home or self-care (01) ==
LOC: HODSRG 08:37
PROVIDERS: Supervising Provider Orthopaedic Surgery Adult Reconstructive Orthopaedic Surgery; Visit Provider Orthopaedic Surgery Adult Reconstructive Orthopaedic Surgery
DX: Z47.1 Aftercare following joint replacement surgery (principal); Z96.641 Presence of right artificial hip joint; M25.562 Pain in left knee; M17.12 Unilateral primary osteoarthritis, left knee; M48.00 Spinal stenosis, site unspecified; I10 Essential (primary) hypertension
CPT/HCPCS: 99214; G0463

== ENCOUNTER 2025-06-22 07:57 | Outpatient (AMB) | payer MEDICARE, OTHER, SELFPAY ==
[2025-06-22 08:18] VITALS: BP 113/72; PULSE 87; RESP 18; TEMP 36.4; O2SAT 96; BMI 25.9
--- NOTE | 2025-06-22 08:18 | ORTHONT_ITS ---
Vital signs 06/22/25 08:18 Height 1.63 m Height Method Stated Weight 68.946 kg Weight Measurement Method Standing Scale BMI 25.9 BP 113/72 Blood Pressure Source Automatic Cuff Blood Pressure Location Right Upper Arm Position Sitting Respiration 18 Pulse 87 Pulse Source Monitor Temp 97.5 F Temp Source Temporal Artery Scan Pulse Oximetry (%) 96 Oxygen Delivery Method Room Air Med/Allergies Allergies & Medications Allergies No Known Allergies Allergy (Verified 06/22/25 08:18) Medication Reconciliation amlodipine 5 mg tablet 5 mg PO DAILY 05/22/25 [History Confirmed 06/22/25] atorvastatin 10 mg tablet 10 mg PO DAILY 05/22/25 [History Confirmed 06/22/25] hydrochlorothiazide 25 mg tablet 25 mg PO DAILY 05/22/25 [History Confirmed 06/22/25] losartan 100 mg tablet 100 mg PO DAILY 05/22/25 [History Confirmed 06/22/25] acetaminophen 500 mg tablet (Acetaminophen Extra Strength) 1,000 mg (2 x 500 mg) PO Q6H PRN pain #90 tabs 05/23/25 [Rx Confirmed 06/22/25] aspirin 81 mg tablet,delayed release 81 mg PO BID #60 tabs 05/23/25 [Rx Confirmed 06/22/25] doxycycline hyclate 100 mg tablet 100 mg PO BID #14 tabs 05/23/25 [Rx Confirmed 06/22/25] gabapentin 300 mg capsule 300 mg PO .qhs #30 caps 05/23/25 [Rx Confirmed 06/22/25] oxycodone 5 mg tablet 5 mg PO Q6H PRN pain #28 tabs 05/23/25 [Rx Confirmed 06/22/25] sennosides 8.6 mg-docusate sodium 50 mg tablet (Senna-S) 1 tab-cap PO QDAY #30 tabs 05/23/25 [Rx Confirmed 06/22/25] Exam Exam Patient is in no acute distress and is cooperative with the examination today. Breathing is nonlabored. Patient has a normal mood and affect. The patient has a gait that is [nonantalgic] Bilateral extremities were evaluated and demonstrates sensation intact to light touch. Palpable pedal pulses are present. No significant edema is present. Bilateral hips were examined. The patient has no pain with log roll of the hips. Internal rotation to 30 degrees and external rotation to 30 degrees is painless. Negative FADIR. 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 She is doing well. Her pain is almost nonexistent at this point. She is using no assistive device. We can see her in approximately 2 months for routine follow-up (2) Arthritis of right hip: Status: Acute (3) Arthritis of knee, left: Status: Acute Advanced Care Planning Discussion Advance care planning discussed with:: patient Office Procedures GNS Level of Care Nursing/Assessment Patient Status: Established Patient Nursing Assessment/Reassesment: Medication Reconciliation, Update PMH in EMR and Vital Signs Coordination of Care: Complex Care and Chronic Disease 1-5, Education Complex Pt/Fam, Consent,records obtained, informed consent, Results/Orders obtained and Staff clarify orders Established Patient Charge Established Patient Point Assignment: 95 Established Patient Point Charge: EP Level 3 (80-115) MA Intake Visit Data Collection New Patient or Established: Established Patient (seen at [facility] within 3 years) Reason for Visit:: 6 WK POST OP RIGHT TKA Seen by Clinical Staff ONLY (RN/MA): No Verbal consent obtained for Telemed visit?: No Information Technology Auditor Required: No PCP or OBGYN visit in last 3 months: Yes Hx Now: No Do You Feel Safe at Home: Yes Authorities Contacted: N/A Questionairres Past Medical History Past Medical History Have you ever been diagnosed with any of the following: Neurological Problems Seizures: No Cardiology Problems Hypercholesterolemia: Yes Congestive Heart Failure: No Hypertension: Yes Respiratory Problems Chronic Obstructive Pulmonary Disease (COPD): No Smoking: Yes (50+ YEARS) Smoking Exposure: Yes Stomache/Intestinal Problems Hepatitis: No Genital/Urinary Problems Renal Disease: No Reproductive Problems Endometriosis: No Pelvic Inflammatory Disease: No Previous Pregnancies: Yes (2) Uterine Prolapse: No Musculoskeletal Problems Arthritis: Yes Fractures: Yes (right wrist) Endocrine Problems Diabetes Mellitus Type 1: No Diabetes Mellitus Type 2: No Other Problems Hospitalization: Yes (surgery) Shingles: No Blood Transfusions: No Blood Transfusion Reaction: No Anesthesia Reactions: No Clostridium Difficile: No Cancer: No Subjective Visit Visit for: post op #3 Immunization / Flu Flu Vaccine in the Last 12 Months: No Flu Vaccine Exclusion Criteria: No Exclusion Criteria History of Present Illness Chief complaint: 6 WK POST OP RIGHT MARY Patient is a 72-year-old female with right hip and left knee pain. She is doing well status post right total hip replacement. Her pain is gone Personal History Occupation: RETIRED Red flag PMH: none BMI Counceling provided: No Additional comments: WALKER WAS GIVEN TO PATIENT Pain Pain level (0-10): 0 Pain duration: ALL DAY Pain location: outside (lateral) Pain quality: aching Pain timing: increases with activity and stairs Associated signs & symptoms: none Ambulatory data Ambulatory device: none Treatments Number of previous injections: 1 Improvement with previous injections: No Improvement with PT: No Improvement with NSAIDS: no Review of Systems Review of Systems: All systems negative unless otherwise noted in HPI.
--- NOTE | 2025-06-22 08:28 | XR_ITS ---
Examination: Right hip AP, lateral, AP pelvis 3 views Technique: Hip AP lateral, AP pelvis, 3 views Exam date and time: June 22, 2025, 0841 hours INDICATIONS: Status post right hip replacement 1 month ago. FINDINGS: Moderate osteopenia. Total right hip arthroplasty. Satisfactory alignment Moderate narrowing left hip joint Bones of the pelvis intact IMPRESSION: Total right hip arthroplasty with satisfactory alignment.
== END 2025-06-22 08:36 | disposition home or self-care (01) ==
LOC: HODSRG 07:57
PROVIDERS: Supervising Provider Orthopaedic Surgery Adult Reconstructive Orthopaedic Surgery; Visit Provider Orthopaedic Surgery Adult Reconstructive Orthopaedic Surgery
DX: M48.00 Spinal stenosis, site unspecified (principal); M17.12 Unilateral primary osteoarthritis, left knee; M16.11 Unilateral primary osteoarthritis, right hip; Z96.641 Presence of right artificial hip joint
CPT/HCPCS: 73502; 99213; G0463